=== PATIENT | male | born 1990 | race Caucasian/White ===

== ENCOUNTER 2017-01-28 00:46 | Emergency (ER) | payer OTHER ==
[~2017-01-28] VITALS: Ht 180.3 cm; Wt 89.9 kg
[~2017-01-28 00:46] MED LIST: PERCOCET 5/31 TABLET PO
[2017-01-28] MEDS ORDERED: BACTRIM,SEPT1 TABLET PO (02:32)
[2017-01-28] MEDS ORDERED: KEFLEX500 MG PO (02:32)
[2017-01-28 02:57] VITALS: BP 131/88
== END 2017-01-28 03:10 | disposition home or self-care (01) ==
LOC: EME 00:46
PROC: 0H9HXZZ Drainage of Right Upper Leg Skin, External Approach (ICD-10-PCS; principal; 2017-01-28)
DX: L02.416 Cutaneous abscess of left lower limb (principal); L03.116 Cellulitis of left lower limb
CPT/HCPCS: 99281; 99283